=== PATIENT | male | born 1935 | race Caucasian/White ===

== ENCOUNTER → 2016-10-16 | Outpatient (CLI) | payer OTHER ==
--- NOTE | 2016-10-16 14:32 | EKG ---
[address] [address] Measurements Intervals [place] Rate: 75 P: [place]: 0 QRS: 46 QRSD: 86 T: 65 QT: 376 QTc: 405 Interpretive Statements ATRIAL FIBRILLATION MINIMAL ST DEPRESSION, POSSIBLE DIGITALIS EFFECT ABNORMAL RHYTHM ECG No previous ECG available for comparison Electronically Signed On 10-16-16 15:54:19 MST by Ortiz Haney [id number]
== END ==
LOC: MOB EKG 14:20
PROVIDERS: ATTEND Specialist
DX: I48.92 Unspecified atrial flutter (principal); I48.91 Unspecified atrial fibrillation
CPT/HCPCS: 93005; 93010

== ENCOUNTER → 2016-12-31 | Outpatient (CLI) | payer OTHER | LOC: MMPC 09:00 | PROVIDERS: ATTEND Internal Medicine | DX: Z79.01 Long term (current) use of anticoagulants (principal); Z51.81 Encounter for therapeutic drug level monitoring; I48.91 Unspecified atrial fibrillation | CPT/HCPCS: 85610 ==

== ENCOUNTER → 2017-01-14 | Outpatient (CLI) | payer OTHER | LOC: MMPC 11:11 | PROVIDERS: ATTEND Internal Medicine | DX: I48.92 Unspecified atrial flutter (principal); E78.5 Hyperlipidemia, unspecified | CPT/HCPCS: 99213; G0463 ==

== ENCOUNTER → 2017-02-20 | Outpatient (CLI) | payer OTHER | LOC: MMPC 09:00 | PROVIDERS: ATTEND Internal Medicine | DX: Z79.01 Long term (current) use of anticoagulants (principal); Z51.81 Encounter for therapeutic drug level monitoring; I48.91 Unspecified atrial fibrillation | CPT/HCPCS: 85610 ==

== ENCOUNTER → 2017-03-13 | Outpatient (CLI) | payer OTHER ==
--- NOTE | 2017-03-14 00:13 | DI ---
XR ANKLE 2VW,03/13/2017 4:14 PM: Clinical History: Acute left ankle pain. Previous Exam: Contralateral ankle performed July 02, 2016 Findings: AP and lateral views of the left ankle are obtained, and demonstrate anatomic alignment without fract ures. There is mild soft tissue swelling. Impression: No fractures.
== END ==
LOC: RAD 16:17
PROVIDERS: ATTEND Internal Medicine
DX: M25.572 Pain in left ankle and joints of left foot (principal); R60.0 Localized edema; M10.9 Gout, unspecified; M15.9 Polyosteoarthritis, unspecified
CPT/HCPCS: 36415; 73600; 84550; 99214; G0463

== ENCOUNTER → 2017-03-14 | Outpatient (CLI) | payer OTHER | LOC: MMPC 10:00 | PROVIDERS: ATTEND Podiatrist Foot & Ankle Surgery | DX: M72.2 Plantar fascial fibromatosis (principal); M79.672 Pain in left foot | CPT/HCPCS: 20550 ×2; 99202; G0463; J0702 ==

== ENCOUNTER → 2017-03-25 | Outpatient (CLI) | payer OTHER | LOC: MMPC 09:00 | PROVIDERS: ATTEND Internal Medicine | DX: Z79.01 Long term (current) use of anticoagulants (principal); Z51.81 Encounter for therapeutic drug level monitoring; I48.91 Unspecified atrial fibrillation | CPT/HCPCS: 85610 ==

== ENCOUNTER → 2017-04-15 | Outpatient (CLI) | payer OTHER | LOC: MMPC 09:00 | PROVIDERS: ATTEND Internal Medicine | DX: Z79.01 Long term (current) use of anticoagulants (principal); Z51.81 Encounter for therapeutic drug level monitoring; I48.91 Unspecified atrial fibrillation | CPT/HCPCS: 85610 ==

== ENCOUNTER → 2017-04-16 | Outpatient (CLI) | payer OTHER ==
--- NOTE | 2017-04-16 08:57 | EKG ---
[address] [address] Measurements Intervals [place] Rate: 73 P: [place]: 0 QRS: 28 QRSD: 83 T: 42 QT: 366 QTc: 392 Interpretive Statements ATRIAL FIBRILLATION ABNORMAL RHYTHM ECG Compared to ECG 10/16/2016 14:34:27 ST (T wave) deviation no longer present Electronically Signed On 04-16-17 11:17:15 MDT by Cecil Ocampo MD [id number]
== END ==
LOC: EKG 08:37
PROVIDERS: ATTEND Specialist
DX: I48.2 Chronic atrial fibrillation (principal); I25.10 Atherosclerotic heart disease of native coronary artery without angina pectoris; E78.5 Hyperlipidemia, unspecified; Z95.5 Presence of coronary angioplasty implant and graft; Z79.01 Long term (current) use of anticoagulants
CPT/HCPCS: 93005; 93010; 99213; G0463

== ENCOUNTER → 2017-04-17 | Outpatient (CLI) | payer OTHER ==
[2017-04-17 09:54] LABS: BUN/CREATININE RATIO 17.27 (6-20); CALCIUM 9.1 mg/dL (8.7-10.7); CHOL/HDL RATIO 3.9 RATIO (0-4.0); LDL CHOLESTEROL,CALCULATED 75.4 mg/dL; MAGNESIUM 1.8 mg/dL (1.6-2.4)
== END ==
LOC: LAB 08:26
PROVIDERS: ATTEND Specialist
DX: E78.5 Hyperlipidemia, unspecified (principal); I48.0 Paroxysmal atrial fibrillation; I10 Essential (primary) hypertension
CPT/HCPCS: 36415; 80048; 80061; 80162; 83735

== ENCOUNTER → 2017-04-25 | Outpatient (CLI) | payer OTHER | LOC: MMPC 10:00 | PROVIDERS: ATTEND Podiatrist Foot & Ankle Surgery | DX: M79.672 Pain in left foot (principal); M72.2 Plantar fascial fibromatosis; Z79.01 Long term (current) use of anticoagulants | CPT/HCPCS: 20550 ×2; G0463; J0702 ==

== ENCOUNTER 2019-05-26 11:15 | Observation (INO) ==
[2019-05-26 13:16] LABS: BASOPHILS # (AUTO) 0.03 10*3/UL; BASOPHILS % (AUTO) 0.3 % (0-1); EOSINOPHILS # (AUTO) 0.17 10*3/UL; EOSINOPHILS % (AUTO) 1.7 % (0-8); Hematocrit [HCT] 46.4 % (42.0-52.0); Hemoglobin [HGB] 15.2 g/dL (14.0-18.0); LYMPHOCYTES # (AUTO) 0.67 10*3/uL; MEAN CORPUSCULAR HGB CONC 32.8 g/dL (33-37); MEAN CORPUSCULAR VOLUME 98.3 FL (80-90); MEAN PLATELET VOLUME 9.7 FL (7.4-12.2); MONOCYTES # (AUTO) 1.38 10*3/UL (0.3-0.8); MONOCYTES % (AUTO) 14.2 % (5-15); NEUTROPHILS # (AUTO) 7.45 10*3/UL; NEUTROPHILS % (AUTO) 76.5 % (50-80); RED BLOOD COUNT 4.72 10^6/uL (4.70-6.10)
[2019-05-26 13:17] LABS: PLATELET MORPHOLOGY COMMENT NORMAL MORPHOLOGY (NORM); RBC MORPHOLOGY COMMENT NORMAL MORPHOLOGY (NORM); WBC MORPHOLOGY COMMENT NORMAL MORPHOLOGY (NORM)
--- NOTE | 2019-05-26 14:05 | DI ---
MRI CERVICAL SPINE SCAN, 05/26/2019 11:55 AM: Clinical History: Left radiculopathy and neck pain. Previous Exam: None. Technique: Sagittal T1and T2 weighted. Axial T2 PLUS and FE 3D DUAL. Coronal T1 scans through the upp er cervical spine. Cervical Cord: Normal cervical cord. Cerebellar Tonsils: Normal position. Vertebral Bodies: The vertebral bodies are of normal height and size. Disc Space Height: Severe disc space narrowing at C5-6 and C6-7 with moderately severe narrowing at C 2-3, C3-4, and C7-T1. Anterior and posterior bony proliferative changes are present at C3-4, C5-6 and C6-7. Disc Levels: C2-3: Normal. C3-4: Spinal canal stenosis in AP diameter secondary to a bulging disc and bony proliferative ch roselyn. Bilateral neural foraminal stenosis. C4-5: Midline focal disc bulge with the AP diameter of the canal at the lowest limits of normal. There is no neural foraminal stenosis. C5-6: Right-sided disc herniation displacing the cord posteriorly on the right side with the AP diameter of the canal at the lower limits of normal. Severe right neural foraminal stenosis and moder ately severe left neural foraminal stenosis. C6-7: Right-sided disc herniation displacing the cord posteriorly on the right side with the AP diameter of the canal at the lowest limits of normal. Severe right neural foraminal stenosis with no left neural foraminal stenosis. C7-T1: Normal. Lower Levels: Normal disc spaces from T1-2 through T4-5. Readin. Spinal canal stenosis at C3-4 secondary to a bulging disc and bony proliferative change. Bilatera l neural foraminal stenosis. 2. C5-6 and C6-7 have right-sided disc herniations with severe right neural foraminal stenosis. At C 5-6, the AP diameter of the canal is at the lower limits of normal and there is moderately severe lef t neural foraminal stenosis. At C6-7, AP diameter of the canal is at the lowest limits of normal and there is no left neural foraminal stenosis. 3. C4-5 has a bulging disc with an AP diameter at the lowest limits of normal and no neural foramina l stenosis.
--- NOTE | 2019-05-26 14:07 | DI ---
LEFT SHOULDER EXAM, 05/26/2019 12:40 PM: Clinical History: Left shoulder pain. Comparison Study: None at this facility. Views: 4 views. Soft Tissues: No soft tissue swelling. Effusion: No joint effusion present. Joints: Mild arthrosis of the AC joint. Remodeling of the glenoid fossa but with a preserved joint sp job. Bones: No fracture or dislocation. Lung: The visualized portions of the right apex and lung are normal. Reading: There is remodeling of the glenohumeral fossa indicating mild arthritic change.
[2019-05-26] MEDS ORDERED: MORPHINE SULFATE 4 MG/1 ML IVP ONE (14:38)
[2019-05-26] MEDS ORDERED: Sodium Chloride 0.9% 1,000 ML PRIMARY IV ONE (14:38)
--- NOTE | 2019-05-26 14:57 | DI ---
CT PELVIS SCAN WITHOUT IV CONTRAST, 05/26/2019 12:30 PM : Clinical History: Left hip pain. Previous Exam: None at this facility. Comparison is made with an AP pelvis and left hip exam from 05/01. IV Contrast: None. Oral Contrast: No oral contrast ordered. Rectal Contrast: No rectal contrast ordered. Masses: No mass present. Ascites: None. Free Air: None. Lymph Nodes: No adenopathy. Appendix: Not imaged on this study. Small Bowel: Limited loops of small bowel are normal. Colon: Limited visualized portions of the colon are normal. Bladder: Normal. Prostate: Prostatic hypertrophy. Hernias: There is a small umbilical hernia through which only mesenteric fat has herniated. Bony Pelvis: Intact. Osteoporotic. Left Hip: Asphericity of the femoral head with a dysplastic "bump" acetabular over coverage with bony proliferation along the inferior aspect of the acetabulum. No joint effusion. Narrowing of the super ior, medial, and posterior joint space. READIN. Negative CT scan of the pelvis without IV contrast. 2. Femoroacetabular impingement of the left hip with joint space narrowing medially, superiorly, and posteriorly.
--- NOTE | 2019-05-26 15:56 | PDOC ---
HPI - History of Present Illness Date of Service: 05/26/19 Time of Service: 18:15 Chief Complaint: Pain back of the neck and the top of the left shoulder, pain left groin area and down to the knee off 4 days duration History of Present Illness: This is an 84 years old male with medical history significant for history of hypertension, history of A. fib, on anticoagulation with warfarin, history of coronary artery disease with previous stent who was brought to the ER because of neck pain and left shoulder pain and left groin area pain that radiated down to the knee of 4 days duration. He said he had pain on and off in these areas but less sever. Pain got severe to the extent that he had to use walker yesterday and also had to use it today but it took a long time to go to the bathroom and then he stayed in his chair. His said she came in he was sitting in his chair was unable to get up. because of that they called the medics and brought him into the ER he had multiple tests done in the ER including an MRI of the neck, shoulder x-ray and the hip x-ray that showed osteoarthritis no evidence of fracture. Patient did say that the last week he was working with 100 pound bag of feed that he had to fill 5 gallon buckets and did that about 4 times. He went to the urgent care clinic had an x-ray was sent home and follow-up with primary. Currently rates his pain as 7-8 out of 10. No other symptoms like nausea, vomiting and shortness of breath and no fever. Past Medical History Medical History: 1. History of paroxysmal A. fib. 2. History of hyperlipidemia. 3. History of hypertension. 4. History of osteoarthritis. 5. History of coronary artery disease with previous stent Surgical History: 1. History of appendectomy. 2. History of cholecystectomy. 3. History of shoulder surgery Family History: Reviewed an Not Pertinent Past Social History: Does not smoke, does not drink no drugs. Tobacco Use: Never Smoker In the Past 12 Months, Have Used or Abuse Any of the Following Substance: None Medication / Allergies Home Medications: Home Medications Medication Instructions Recorded Confirmed aspirin 81 mg tablet,delayed 81 mg PO QDAY tab 07/01/17 05/26/19 release digoxin 125 mcg tablet 125 mcg PO QDAY #90 tab 12/31/18 05/26/19 lisinopril 10 mg tablet 10 mg PO QDAY #90 tab 12/31/18 05/26/19 metoprolol succinate ER 100 mg 100 mg PO BID #180 tab 12/31/18 05/26/19 tablet,extended release 24 hr rosuvastatin 20 mg tablet 20 mg PO QDAY #90 tab 12/31/18 05/26/19 warfarin 5 mg tablet 5 mg PO QDAY #90 tab 12/31/18 05/26/19 Allergies/Adverse Reactions: Allergies Allergy/AdvReac Type Severity Reaction Status Date / Time No Known Allergies Allergy Verified 05/26/19 12:42 Review of Systems - Review of Systems All Systems: Reviewed & No Additional Complaints Except as Stated Exam - Vitals Vital Signs: Vital Signs Temperature 97 F Temperature Source Temporal Artery Scan Pulse Rate [Pulse Oximeter] 85 Respiratory Rate 16 Blood Pressure [Left Arm] 153/83 Pulse Ox 93 Oxygen Delivery Method Room Air Height 5 ft 7 in Weight 180 lb - General General Appearance: No Acute Distress, Cooperative - Head Head Exam: Normal Inspection - Eye Eye Exam: POSITIVE: Normal Appearance - ENT ENT Exam: POSITIVE: Normal Exam - Neck Neck Exam: Normal Inspection - Respiratory Respiratory Exam: POSITIVE: Clear to Auscultation - Bilaterally - Cardiovascular Cardiovascular Exam: POSITIVE: Irregular Rhythm - GI/Abdominal GI/Abdominal Exam: POSITIVE: Normal Bowel Sounds, Non Tender, Non Distended, Soft, No Organomegaly - Rectal Rectal Exam: POSITIVE: Deferred - External Exam: POSITIVE: Deferred - Extremities Additional Extremities Exam Details: Left leg is somewhat externally rotated. Movement is limited because of pain. he Is barely able to lift his leg up while in bed. Also limited flexion- extension of the knee because of pain. Passive movement also elicited pain. - Neurological Neurological Exam: POSITIVE: Alert, Oriented x 3, CN II-XII Intact, No Facial Droop, Speech Intact / Clear - Psychiatric Psychiatric Exam: POSITIVE: Normal Affect - Integumentary Integumentary Exam: POSITIVE: Normal Color Results - Labs CBC and BMP: 05/26/19 13:10 05/26/19 13:10 - Imaging Status: Report Reviewed by Me (CT pelvis 1. Negative CT scan of the pelvis without IV contrast. 2. Femoroacetabular impingement of the left hip with joint space narrowing medially, superiorly, and posteriorly. Shoulder X ray There is remodeling of the glenohumeral fossa indicating mild arthritic change. MRI neck 1. Spinal canal stenosis at C3-4 secondary to a bulging disc and bony proliferative change. Bilateral neural foraminal stenosis. 2. C5-6 and C6-7 have right-sided disc herniations with severe right neural foraminal stenosis. At C5-6, the AP diameter of the canal is at the lower limits of normal and there is moderately severe left neural foraminal stenosis. At C6-7, AP diameter of the canal is at the lowest limits of normal and there is no left neural foraminal stenosis. 3. C4-5 has a bulging disc with an AP diameter at the lowest limits of normal and no neural foraminal stenosis.) Assessment and Plan - Patient Problems (1) Left hip pain Current Visit: Yes Status: Acute Comment: There is evidence of arthritis with no evidence of fracture. if He continued to have pain , will an MRI of his hip and will consult ortho. We'll check ESR and CRP. Will put him on pain medication and will give a dosage of Celebrex Code(s): M25.552 - Pain in left hip (2) Essential hypertension Current Visit: No Status: Chronic Onset Date: 03/28/12 Comment: Same medication Code(s): I10 - Essential (primary) hypertension (3) Paroxysmal atrial fibrillation Current Visit: No Status: Chronic Comment: Continue current medication including metoprolol and warfarin. (4) Hyperlipidemia Current Visit: No Status: Chronic Onset Date: 03/28/12 Comment: Same medications Code(s): E78.5 - Hyperlipidemia, unspecified
[2019-05-26] MEDS ORDERED: LIDOCAINE W/ SODIUM BICARB 0.5 ML SYR SUBD PRN (17:45)
[2019-05-26] MEDS ORDERED: CALCIUM CARBONATE 500 MG (TUMS) CHEWABLE TABLET PO PRN (17:45)
[2019-05-26] MEDS ORDERED: ONDANSETRON 4 MG/2 ML VIAL IVP PRN (17:45)
[2019-05-26] MEDS ORDERED: DOCUSATE 100 MG CAPSULE PO PRN (17:45)
[2019-05-26] MEDS ORDERED: ACETAMINOPHEN 325 MG TABLET PO PRN (17:45)
[2019-05-26] MEDS ORDERED: MORPHINE SULFATE 2 MG/1 ML IVP PRN (17:51)
[2019-05-26] MEDS: HYDROcodone-APAP 5 MG -325 MG TABLET PO PRN (18:43)
[2019-05-26] MEDS ORDERED: CELECOXIB 200 MG CAPSULE PO ONE (18:44)
[2019-05-26] MEDS: Rosuvastatin Tab 20 MG TAB PO SCH (20:39)
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
[2019-05-26] MEDS: Warfarin Tab 2.5 MG TAB PO SCH (20:47)
[2019-05-26] MEDS: METOPROLOL SUCCINATE 100 MG SR 24H TABLET PO SCH (20:47)
[2019-05-27] MEDS: HYDROcodone-APAP 5 MG -325 MG TABLET PO PRN ×6 (00:04→23:45)
[2019-05-27] MEDS: PANTOPRAZOLE 40 MG TABLET PO SCH (07:20)
--- NOTE | 2019-05-27 07:59 | PDOC(PROG) ---
Date of Service: 05/27/19 Time of Service: 07:30 Interval History: Subjective Maybe a little bit better today compared to yesterday. However he said he did not get up since he's been here. He Said the pain medication is helping. No nausea. Objective : Data - Labs CBC and BMP: 05/26/19 13:10 05/26/19 13:10 Objective : Exam - General General Appearance: No Acute Distress, Cooperative, Obese - Head Head Exam: Normal Inspection - Eye Eye Exam: Normal Appearance - ENT ENT Exam: Normal Exam - Neck Neck Exam: Normal Inspection - Respiratory Respiratory Exam: Clear to Auscultation - Bilaterally - Cardiovascular Cardiovascular Exam: RRR - GI/Abdominal GI/Abdominal Exam: Normal Bowel Sounds, Non Tender, Non Distended, Soft, No Organomegaly - Rectal Rectal Exam: Deferred - External Exam: Deferred - Extremities Additional Extremities Exam Details: Slight external rotation of the left leg. He is able to do more like lifting the leg up better than yesterday but still very limited movement because of the pain. Also left shoulder abduction is better than yesterday but is still limited by pain. - Neurological Neurological Exam: Alert, Oriented x 3, CN II-XII Intact, No Facial Droop, Speech Intact / Clear - Psychiatric Psychiatric Exam: Normal Affect - Integumentary Integumentary Exam: Normal Color Assessment and Plan - Patient Problems (1) Left hip pain Current Visit: Yes Status: Acute Comment: I think will order an MRI of his hip. I did speak with Dr. Chairez will see patient after the MRI. Likely also consult PT and OT after that. Code(s): M25.552 - Pain in left hip (2) Essential hypertension Current Visit: No Status: Chronic Onset Date: 03/28/12 Comment: Same medication Code(s): I10 - Essential (primary) hypertension (3) Paroxysmal atrial fibrillation Current Visit: No Status: Chronic Comment: Continue same medication and continue anticoagulation. I think though we'll hold the Coumadin tonight and recheck his INR tomorrow. (4) Hyperlipidemia Current Visit: No Status: Chronic Onset Date: 03/28/12 Comment: Same med Code(s): E78.5 - Hyperlipidemia, unspecified
[2019-05-27] MEDS: ASPIRIN EC 81 MG TABLET PO SCH (09:05)
[2019-05-27] MEDS: LISINOPRIL 10 MG TABLET PO SCH (09:06)
[2019-05-27] MEDS: DIGOXIN 125 MCG TABLET PO SCH (09:06)
[2019-05-27] MEDS: METOPROLOL SUCCINATE 100 MG SR 24H TABLET PO SCH ×2 (09:06→20:28)
--- NOTE | 2019-05-27 11:36 | DI ---
MRI LEFT HIP, 05/27/2019 8:55 AM: Clinical History: Left hip pain. Unable to walk. Prior Study: None at this facility. Comparison Exam: None. Technique: Coronal PD and fat saturated PD with anterior and posterior oblique coronal fat saturated PD; sagittal PD and fat saturated PD; and axial fat saturated T2 weighted and oblique axial PD. Femoral Head/Neck Junction: Aspherical femoral head/neck junction. No fibrocystic change. Iliofemoral Ligament: Intact without thickening. Ligamentum Teres Tendon: Intact. Acetabular Roof: Non-dysplastic. There is acetabular overcoverage. No retroversion. Acetabular Articular Cartilage: With thin but without cartilage degeneration. Chondrocalcinosis. Femoral Head Articular Cartilage: Thin but without cartilage degeneration. Joint Effusion: Moderately large effusion. Acetabular Labrum: Marked degeneration with a small labral tear labral tear posteriorly in zone 4. La bral tear of the anterosuperior labrum in zone 2. Gluteus Medius and Minimus Tendons: Intact. No tendinosis. Muscle strain in the gluteus minimus muscl e near the myotendinous junction. Greater Trochanteric Bursa: No increased fluid. Rectus Femoris Tendon: Intact direct and indirect head. Iliopsoas Tendon: Intact. Muscle strain in the iliopsoas muscle. Rectus Femoris Tendon: Intact. Alpha Angle: 59 degrees. Readin. Moderately large joint effusion. No fractures identified. 2. Muscle strains involving the iliopsoas muscle and the gluteus minimus muscle with possible edema of the subcutaneous fat over the lateral aspect of the hip. 3. Femoroacetabular impingement with a small labral tear posteriorly in zone 4 and a tear in the ant erosuperior labrum in zone 2. Chondrocalcinosis.
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
[2019-05-27] MEDS: Rosuvastatin Tab 20 MG TAB PO SCH (20:28)
[2019-05-28] MEDS: HYDROcodone-APAP 5 MG -325 MG TABLET PO PRN ×3 (04:19→19:57)
[2019-05-28] MEDS ORDERED: BUPivacaine Inj 0.5% PF (5mg/ml) 10ml vial ONE (07:53)
[2019-05-28] MEDS ORDERED: LIDOCAINE MPF 2% - 5 ML (20 MG/1 ML) ONE (07:53)
[2019-05-28] MEDS ORDERED: BETAMET ACET/BETAMET NA PH 6 MG/1 ML - 5 ML ONE (07:53)
[2019-05-28] MEDS ORDERED: LIDOCAINE W/ SODIUM BICARB 0.5 ML SYR ONE ×2 (07:54→08:55)
[2019-05-28] MEDS: PANTOPRAZOLE 40 MG TABLET PO SCH (07:56)
[2019-05-28] MEDS: ASPIRIN EC 81 MG TABLET PO SCH (08:00)
[2019-05-28] MEDS: DIGOXIN 125 MCG TABLET PO SCH (08:00)
[2019-05-28] MEDS: METOPROLOL SUCCINATE 100 MG SR 24H TABLET PO SCH ×2 (08:00→19:59)
[2019-05-28] MEDS: LISINOPRIL 10 MG TABLET PO SCH (08:00)
--- NOTE | 2019-05-28 09:29 | PDOC(PROG) ---
Date of Service: 05/28/19 Time of Service: 09:30 Interval History: Subjective Patient had the hip and shoulder injected earlier. Already he said feels better. Still have pain but it's better than earlier. No other symptoms. Objective : Data - Labs CBC and BMP: 05/26/19 13:10 05/26/19 13:10 Objective : Exam - General General Appearance: No Acute Distress, Cooperative - Head Head Exam: Normal Inspection - Eye Eye Exam: Normal Appearance - ENT ENT Exam: Normal Exam - Neck Neck Exam: Normal Inspection - Respiratory Respiratory Exam: Clear to Auscultation - Bilaterally - Cardiovascular Cardiovascular Exam: Irregular Rhythm - GI/Abdominal GI/Abdominal Exam: Normal Bowel Sounds, Non Tender, Non Distended, Soft, No Organomegaly - Rectal Rectal Exam: Deferred - External Exam: Deferred - Extremities Extremities Exam: Normal Inspection - Back Back Exam: Normal Inspection - Neurological Neurological Exam: Alert, Oriented x 3, CN II-XII Intact, No Facial Droop Additional Neurological Exam Details: Limitation of shoulder abduction and also hip flexion. But he said it's better than 4. - Psychiatric Psychiatric Exam: Normal Affect Assessment and Plan - Patient Problems (1) Left hip pain Current Visit: Yes Status: Acute Comment: Status post hip injection, I think we'll ask PT and OT to work with him. We'll check also the fluid later on. Code(s): M25.552 - Pain in left hip (2) Essential hypertension Current Visit: No Status: Chronic Onset Date: 03/28/12 Comment: Same medication Code(s): I10 - Essential (primary) hypertension (3) Paroxysmal atrial fibrillation Current Visit: No Status: Chronic Comment: Since he needed to have the procedure done we held his Coumadin and we actually gave him vitamin K to reverse the effect of warfarin. I think now we can restart the warfarin. We'll recheck his INR tomorrow. (4) Hyperlipidemia Current Visit: No Status: Chronic Onset Date: 03/28/12 Comment: Same med Code(s): E78.5 - Hyperlipidemia, unspecified
[2019-05-28 09:37] LABS: WBC, BODY FLUID 10.05 10*3/uL
--- NOTE | 2019-05-28 12:53 | PTI REPORT ---
Thank you for the referral of Pepe Prabhakar. He was seen on 05/28/19 for an inpatient evaluation secondary to left shoulder and left hip pain. SUBJECTIVE: The patient is an 84-year-old male. At the time of the evaluation, occupational therapy was present as well as the patient's . Chart review and the patient's confirm that he was brought into the emergency room via ambulance on Saturday due to a drastic increase in pain in his left hip. The patient states he wasn't hardly able to move his leg let alone place weight on it. He states he has underwent several different types of imaging and currently they are doing blood work to see if it is gout. He states he hasn't hardly been out of bed for the past three days and is wanting to go home as soon as he can be mobile. PAST MEDICAL HISTORY: Past medical history can be found in the patient's medical record. OBJECTIVE FINDINGS: Pain: The patient reports a pain level in his left hip at 7 to 8/10 on the verbal analog scale (0=no pain, 10=worst pain) and a 9/10 with movement. Bed mobility: The patient required max assist x1 for bed mobility from supine to edge of bed. He was able to sit edge of bed unsupported for greater than 5 minutes without difficulty. Transfers: The patient is able to perform sit to stand transfers with tactile cues and verbal encouragement for safety awareness and proper hand placement. He was able to perform standing activities for greater than 15-20 minutes with walker, gait belt, and contact guard assistance with anything between toe touch to weight-bearing as tolerated on the left lower extremity. The patient required only verbal cues for a standing to sit transfer for proper leg placement and hand placement on the chair. Ambulation: Initially the patient required mod to max assist for the left lower extremity initiation for any type of ambulatory activities; however, this decreased to just stand by assist. He was unable to perform any actual ambulatory activities due to the pain in his left groin and hip but was able to turn in a [place]. Strength/Range of motion: Strength and range of motion were not formally assessed due to the patient's currently pain level. ASSESSMENT: Problem List: Uncontrolled pain Inability to perform bed mobility and transfers independently Inability to ambulate or tolerate weight-bearing due to pain Physical Therapy Goals: To be met by discharge from inpatient: Patient will be able to perform all bed mobility and transfers with at least stand by assist. Patient will be able to ambulate 100-300 feet for community and household ambulation for safety with returning to home. Patient will be able to ascend and descend at least three steps. TREATMENT PLAN: Patient will be seen B.I.D during the week and one time per day over the weekend as an inpatient to address the above goals and objectives. INITIAL TREATMENT: Treatment today consisted of the initial evaluation followed by having the patient perform bed mobility from supine to edge of bed with max assist x1 as well as issuing the patient a walker. The patient performed functional activities unsupported seated at the edge of the bed including attempted heel slides; however, the patient was unable to do this due to pain recreation. The patient performed sit to stand transfers with moderate assist x1 followed by standing activities for greater than 20 minutes. Following completion of this, he was transferred to his chair with call light within reach. GRUPO
--- NOTE | 2019-05-28 17:07 | ORTHO.OP ---
- - -: See Dictated Operative Report Procedure Codes - Miscellaneous Procedures Primary Miscellaneous Procedure Codes: Other CPT Code(s) (CPT Codes 56574 and 78481 for left hip, 66958 for left shoulder injection)
--- NOTE | 2019-05-28 17:10 | ORTHO.PROG ---
Last Taken Vital Signs: Vital Signs - Last Taken Temperature 98.3 F 05/28/19 13:00 Pulse Rate 90 05/28/19 15:00 Respiratory Rate 12 05/28/19 13:00 Blood Pressure 116/62 05/28/19 13:00 Pulse Ox 91 05/28/19 15:00 Subjective: Patient notes left shoulder is doing great no pain left hip markedly better but still was some symptoms of discomfort in the groin region. Objective: Examination shows that the patient's hip motion is definite better he can flex to 70 and internally rotate to neutral externally rotated about 30. There is no redness no erythema. Sores her shoulder he has about 120 forward flexion and external rotation of the arm by the side 3035 strength is I would say 4+ over 5 internal/external rotation strength but weakness with supraspinatus isolation. No tenderness to palpation. Gram stain showed no organisms occasional white blood cells, Crystal analysis showed no crystals, Laboratory Results 05/27/19 05/28/19 05/28/19 22:01 04:24 04:24 PT 24.0 H 18.1 H INR 2.07 1.57 Fluid WBC Fluid RBC Fluid Polynuclear WBCs Fluid Mononuclear WBCs Synovial Crystals Digoxin 1.8 05/28/19 05/28/19 09:09 09:09 PT INR Fluid WBC 10.05 Fluid RBC 0.002 Fluid Polynuclear WBCs 83.5 Fluid Mononuclear WBCs 16.5 Synovial Crystals None seen Digoxin Vital Signs (24 hrs) 05/27/19 19:00 05/27/19 19:34 05/27/19 21:00 Temperature 98.4 F Pulse Rate Pulse Rate [Left Radial] Pulse Rate [Pulse Oximeter] 90 Pulse Rate [pulse ox] Respiratory Rate 15 Blood Pressure [Left Arm] 133/70 Pulse Ox 91 Pulse Ox [pulse ox] 92 92 05/27/19 23:00 05/27/19 23:51 05/28/19 01:00 Temperature 98.3 F Pulse Rate Pulse Rate [Left Radial] Pulse Rate [Pulse Oximeter] 90 Pulse Rate [pulse ox] Respiratory Rate 20 Blood Pressure [Left Arm] 142/73 Pulse Ox 90 Pulse Ox [pulse ox] 91 91 05/28/19 03:00 05/28/19 04:27 05/28/19 04:37 Temperature 98.4 F Pulse Rate Pulse Rate [Left Radial] Pulse Rate [Pulse Oximeter] 84 Pulse Rate [pulse ox] Respiratory Rate 20 Blood Pressure [Left Arm] 144/82 Pulse Ox 91 93 Pulse Ox [pulse ox] 92 05/28/19 05:00 05/28/19 07:00 05/28/19 07:30 Temperature 98.2 F Pulse Rate Pulse Rate [Left Radial] 66 Pulse Rate [Pulse Oximeter] 81 81 Pulse Rate [pulse ox] Respiratory Rate 14 14 Blood Pressure [Left Arm] 140/68 Pulse Ox 93 Pulse Ox [pulse ox] 92 05/28/19 08:00 05/28/19 11:00 05/28/19 13:00 Temperature 98.3 F Pulse Rate 81 Pulse Rate [Left Radial] Pulse Rate [Pulse Oximeter] 81 Pulse Rate [pulse ox] 89 91 Respiratory Rate 12 Blood Pressure [Left Arm] 116/62 Pulse Ox 91 Pulse Ox [pulse ox] 91 91 05/28/19 15:00 Temperature Pulse Rate Pulse Rate [Left Radial] Pulse Rate [Pulse Oximeter] Pulse Rate [pulse ox] 90 Respiratory Rate Blood Pressure [Left Arm] Pulse Ox Pulse Ox [pulse ox] 91 Assessment: Left hip inflammatory arthritis and left shoulder chronic rotator cuff arthropathy likely with degree of inflammatory arthritis. Plan: Follow cultures to make shows no evidence of infection in the left hip. Hopefully he'll get better relief as time passes with the hip injection. Patient restarted on his regular medication for anticoagulation Coumadin. Mobilize with physical therapy and occupational therapy.
[2019-05-28] MEDS: Warfarin Tab 2.5 MG TAB PO SCH (19:59)
[2019-05-28] MEDS: Rosuvastatin Tab 20 MG TAB PO SCH (19:59)
[2019-05-29] MEDS: HYDROcodone-APAP 5 MG -325 MG TABLET PO PRN ×4 (02:25→20:52)
--- NOTE | 2019-05-29 08:44 | ORTHO.PROG ---
Last Taken Vital Signs: Vital Signs - Last Taken Temperature 98.4 F 05/29/19 07:37 Pulse Rate 87 05/29/19 07:44 Respiratory Rate 17 05/29/19 07:37 Blood Pressure 131/59 05/29/19 07:37 Pulse Ox 94 05/29/19 07:44 Subjective: Patient doing better this morning is no left shoulder pain after the injection his left hip is better but still has a little discomfort and keeps continuing to improve. Objective: Hip motion about 80 of flexion and internal/external rotation gently rolling doesn't seem to cause marked pain but does cause a little achiness in the hip region. Neurovascularly intact good pulses brisk refill shoulder motion is actually unchanged with no pain with motion Laboratory Results 05/28/19 05/28/19 05/29/19 09:09 09:09 07:14 PT 14.0 H INR 1.21 Fluid WBC 10.05 Fluid RBC 0.002 Fluid Polynuclear WBCs 83.5 Fluid Mononuclear WBCs 16.5 Synovial Crystals None seen Microbiology 05/28/19 09:09 Gram Stain - Final Hip - Left Aerobic Culture - Pending Gram stain with no evidence of organisms Assessment: Left hip aspiration with effusion likely secondary to arthritic issues, we'll continue to follow cultures or evidence of infection Last shoulder rotator cuff arthropathy, doing well after injection Plan: Patient will work with therapy today mobilization with a walker eventually I think he can wean to a cane on using the right hand for the left hip. We'll see how he progresses is removed forward in time and have him able to go home if he clears therapy I don't think we have to keep him in the hospital while awaiting the culture results though I did discuss with the family that if these do come back positive we may need to have him come back in for IV antibiotics and follow this closely and potentially either aspirate again or consider an open washout
[2019-05-29] MEDS: PANTOPRAZOLE 40 MG TABLET PO SCH (08:56)
[2019-05-29] MEDS: METOPROLOL SUCCINATE 100 MG SR 24H TABLET PO SCH ×2 (08:56→20:53)
[2019-05-29] MEDS: ASPIRIN EC 81 MG TABLET PO SCH (08:56)
[2019-05-29] MEDS: LISINOPRIL 10 MG TABLET PO SCH (08:56)
[2019-05-29] MEDS: DIGOXIN 125 MCG TABLET PO SCH (08:57)
--- NOTE | 2019-05-29 11:19 | PT.PROG ---
Progress Note Progress Note: S. pt was in intense pain but reported it being better then yesterday. He siad as long as he can stand and walk forward he does ok. Turning and sidestepping and hip rotation caused horrible pain. O. pt was helped to his w/c via walker and a few steps to his chair and transported to physical therapy. He received heat x 20 min and did mat activities including Quad sets, Heel slides, clams, sit to stands we tried to do 2 stairs. He was placed in his chair and taken back to his room and transferred. A. pt is struggling with pain and ambulation exacerbates it. He was unable to do the stairs in a safe manner and his was concerned over her being able to assist him in his current state. He asked if he could get a shower as he has not had one since arrival and OT therapy has agreed to do that this afternoon to see how he can or can't functional manage ADL's. P. Cont POC. pt was unable to safely perform stairs training. 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
--- NOTE | 2019-05-29 11:26 | OT.PROG ---
Progress Note Progress Note: S: pt reported that he didn't really want a high rise toilet. He reported that he hasn't really walked at all. O: pt was seen in his room and was upright in his chair. He completed Ue dressing with min A. He completed STS with min A and transferred to restroom. He completed transfer onto toilet with Mod Ind as it took him longer to complete with use of grab bar. He completed ambulation apprx 30 ft very slowly. He was transferred the rest of way down to therapy in w/c. He completed bed mobility Ind and was left on heat. A: pt is having difficulty ambulating properly and effectively as well as pain management. He will be assessed this afternoon with further ADL activities. P: continue per pOC.
--- NOTE | 2019-05-29 13:32 | PDOC(PROG) ---
Date of Service: 05/29/19 Time of Service: 10:00 Interval History: Subjective he feels better compared to when he came in. He is able to move his left shoulder better than before, the pain also seems to be improved. The left hip pain also improved. However he said he still somewhat weak. He is working with physical therapy now. Objective : Data - Labs CBC and BMP: 05/26/19 13:10 05/26/19 13:10 Objective : Exam - General General Appearance: No Acute Distress, Cooperative - Head Head Exam: Normal Inspection - Eye Eye Exam: Normal Appearance - ENT ENT Exam: Normal Exam - Neck Neck Exam: Normal Inspection - Respiratory Respiratory Exam: Clear to Auscultation - Bilaterally - Cardiovascular Cardiovascular Exam: Irregular Rhythm - GI/Abdominal GI/Abdominal Exam: Normal Bowel Sounds, Non Tender, Non Distended, Soft, No Organomegaly - Rectal Rectal Exam: Deferred - External Exam: Deferred - Extremities Extremities Exam: Normal Inspection - Back Back Exam: Normal Inspection Assessment and Plan - Patient Problems (1) Left hip pain Current Visit: Yes Status: Acute Comment: Status post the steroid injection to the hip and drainage of fluid. Continue current management continue PT and OT. I did speak with physical therapy still needs another day or 2. Will continue with physical therapy. Code(s): M25.552 - Pain in left hip (2) Essential hypertension Current Visit: No Status: Chronic Onset Date: 03/28/12 Comment: Same med Code(s): I10 - Essential (primary) hypertension (3) Paroxysmal atrial fibrillation Current Visit: No Status: Chronic Comment: Continue Coumadin will repeat his INR tomorrow his INR is down as we had to reverse the effect of the Coumadin. He'll receive another dosage today tonight at 5 mg of warfarin and repeat tomorrow. May need further adjustment to try to reach a therapeutic level again. I calculated his [id number] vasc score to be 4. So I think we can do without bridging anticoagulation. (4) Hyperlipidemia Current Visit: No Status: Chronic Onset Date: 03/28/12 Comment: Same meds Code(s): E78.5 - Hyperlipidemia, unspecified
--- NOTE | 2019-05-29 16:18 | PT.PROG ---
Progress Note Progress Note: S: Pt. states he is feeling pretty good today. O: Treatment consisted of functional activities: ambulated approx 25 feet with use of FWW, nu step x 13 minutes; therapeutic exercises: saq, slr, 4 way ankle, sit to stands x 10 followed by ambulating approx 75 feet with use of FWW. A: Pt. is improving with strength and function. He does present with pain which does limit his mobility. He would benefit from atleast another treatment session to address these areas of concern. P: Continue per POC to increase strength and activity tolerance. Amy Howard, [employer] ENGINEER
--- NOTE | 2019-05-29 16:24 | OT.PROG ---
Progress Note Progress Note: S: pt reports that he thinks maybe one more day would be good for him. He did state that pain in his groin area is quite severe when he tries to turn with walking with walker. O: pt was seen in his room and shower set up was completed for him. He completed transfer apprx 20 ft to shower room with standard walker. He completed doffing of UE/Le garments with mod Ind as it took him longer to complete. He completed showering with sBA for safety purposes only. He then donned UE/LE garments with MOd Ind and transferred back to his room. Pt refused to use A. E for donning of socks but eventually did christos socks INd on R and needed min A with L. He then then was transferred down to therapy for PT. A: Pt did progress slightly this afternoon, but is still experiencing quite a bit of pain through sit to stand transitions. He did ambulate at a greater distance, but very slow. He would benefit from another day, of therapy possibly two depending on his progress tomorrow. P: continue per POC.
[2019-05-29] MEDS: Warfarin Tab 2.5 MG TAB PO SCH (20:53)
[2019-05-29] MEDS: Rosuvastatin Tab 20 MG TAB PO SCH (20:54)
[2019-05-30] MEDS: HYDROcodone-APAP 5 MG -325 MG TABLET PO PRN (08:26)
[2019-05-30] MEDS: ASPIRIN EC 81 MG TABLET PO SCH (08:27)
[2019-05-30] MEDS: DIGOXIN 125 MCG TABLET PO SCH (08:27)
[2019-05-30] MEDS: PANTOPRAZOLE 40 MG TABLET PO SCH (08:27)
[2019-05-30] MEDS: LISINOPRIL 10 MG TABLET PO SCH (08:28)
[2019-05-30] MEDS: METOPROLOL SUCCINATE 100 MG SR 24H TABLET PO SCH ×2 (08:28→20:37)
--- NOTE | 2019-05-30 09:48 | ORTHO.PROG ---
Last Taken Vital Signs: Vital Signs - Last Taken Temperature 97.9 F 05/30/19 07:24 Pulse Rate 82 05/30/19 08:27 Respiratory Rate 20 05/30/19 07:24 Blood Pressure 138/61 05/30/19 07:24 Pulse Ox 92 05/30/19 07:24 Subjective: Patient notes left shoulder is doing great after the injection of the left hip he still is groin pain but markedly less from where was before is able to stand to do her exercises he's, trying to stairs today. Objective: Examination shows he has a hip flexion to about 100 internal rotation Rotation 30 he does have some groin pain associated with this. Shoulder limited range of motion secondary to chronic arthropathy I believe but otherwise reasonable strength and no pain. Laboratory Results 05/30/19 04:20 PT 13.8 H INR 1.20 Microbiology 05/28/19 09:09 Gram Stain - Final Hip - Left Aerobic Culture - Preliminary Cultures over negative reading today still pending, today's reading 1 colony on the plates and is to undergo an Airtest, may be contaminant. Assessment: Left shoulder rotator cuff arthropathy and left hip osteoarthritis exacerbation Plan: Patient will continue with physical therapy and occupational therapy. Patient doing well at the current time and making progress moving forward. I think we will need to follow him along clinically. The culture was one colony growing and this may be a skin contaminant most likely. I think at this point we would follow closely clinically maybe get infectious disease opinion.
--- NOTE | 2019-05-30 11:36 | PDOC(PROG) ---
Interval History: Mr. Crespo says overall his left hip. Feels a little better but still hurts in his left shoulders does not hurt even though he was offered to be discharged home today [facility] [place] fill comfortable staying another day in going home tomorrow. Denies any chest pain nausea or vomiting Objective : Data - Labs CBC and BMP: 05/26/19 13:10 05/26/19 13:10 Objective : Exam - General General Appearance: No Acute Distress, Cooperative - Respiratory Respiratory Exam: Clear to Auscultation - Bilaterally, Breathing Non Labored, Normal To Percussion, Normal to Percussion and Palpation - Cardiovascular Cardiovascular Exam: RRR, No Murmur, No Clicks, No Gallops, No Rubs, PMI Non- Displaced - GI/Abdominal GI/Abdominal Exam: Normal Bowel Sounds, Non Tender, Non Distended, Soft, No Masses, No Hepatomegaly, No Splenomegaly, No Organomegaly Assessment and Plan - Patient Problems (1) Left hip pain Current Visit: Yes Status: Acute Comment: Patient had an injection with steroids and some fluid drained cultures are pending I will repeat a CBC with differential and CRP. No fever no signs of infection at this point I discussed the case with Dr. Chairez who would be agreeable for discharge and follow up with him in the next week Code(s): M25.552 - Pain in left hip (2) Essential hypertension Current Visit: No Status: Chronic Onset Date: 03/28/12 Comment: Stable Code(s): I10 - Essential (primary) hypertension (3) Paroxysmal atrial fibrillation Current Visit: No Status: Chronic Comment: Resume Coumadin (4) Hyperlipidemia Current Visit: No Status: Chronic Onset Date: 03/28/12 Comment: Stable Code(s): E78.5 - Hyperlipidemia, unspecified
[2019-05-30 11:53] LABS: BASOPHILS # (AUTO) 0.02 10*3/UL; BASOPHILS % (AUTO) 0.1 % (0-1); EOSINOPHILS # (AUTO) 0 10*3/UL; EOSINOPHILS % (AUTO) 0 % (0-8); Hematocrit [HCT] 47.7 % (42.0-52.0); Hemoglobin [HGB] 15.7 g/dL (14.0-18.0); LYMPHOCYTES # (AUTO) 0.46 10*3/uL; MEAN CORPUSCULAR HGB CONC 32.9 g/dL (33-37); MEAN CORPUSCULAR VOLUME 99.6 FL (80-90); MEAN PLATELET VOLUME 10.2 FL (7.4-12.2); MONOCYTES % (AUTO) 5.2 % (5-15); NEUTROPHILS # (AUTO) 15.69 10*3/UL; NEUTROPHILS % (AUTO) 91.5 % (50-80); RED BLOOD COUNT 4.79 10^6/uL (4.70-6.10)
[2019-05-30 12:03] LABS: PLATELET MORPHOLOGY COMMENT NORMAL MORPHOLOGY (NORM); RBC MORPHOLOGY COMMENT NORMAL MORPHOLOGY (NORM); WBC MORPHOLOGY COMMENT NORMAL MORPHOLOGY (NORM)
--- NOTE | 2019-05-30 12:04 | PT.PROG ---
Progress Note Progress Note: S. The pt reportred feeling better today and was ready to get going on his therapy. O. The pt was assisted to the toilet where he was able to take care of pericare I. He ambulated down stairs with a FWW CGA. He received heat x 20 min, Ther ex including Nustep, UBE, all upper arm strengthening using red t band. Stair training x2 up and down with right hand rail and walker on left. All Mat activities except SLS. Min drills, sit to stands. A. the pt did very well and was safe on the stairs. He was able to safely ambulate to and from his room. He is able to care for functional activities. His pain was worse after therapy. He is cleared from therapy do be discharged when the hospitalist deems appropriate. P. COnt POC Yareli Fieldcamp CROZE MACHINE OPERATOR
[2019-05-30] MEDS: Rosuvastatin Tab 20 MG TAB PO SCH (20:37)
[2019-05-30] MEDS: Warfarin Tab 2.5 MG TAB PO SCH (20:37)
[2019-05-31 04:48] LABS: BASOPHILS # (AUTO) 0.01 10*3/UL; BASOPHILS % (AUTO) 0.1 % (0-1); EOSINOPHILS # (AUTO) 0 10*3/UL; EOSINOPHILS % (AUTO) 0 % (0-8); Hematocrit [HCT] 49.6 % (42.0-52.0); Hemoglobin [HGB] 15.8 g/dL (14.0-18.0); LYMPHOCYTES # (AUTO) 0.51 10*3/uL; MEAN CORPUSCULAR HGB CONC 31.9 g/dL (33-37); MEAN PLATELET VOLUME 9.6 FL (7.4-12.2); MONOCYTES % (AUTO) 9.8 % (5-15); NEUTROPHILS # (AUTO) 11.31 10*3/UL; NEUTROPHILS % (AUTO) 85.4 % (50-80); RED BLOOD COUNT 4.96 10^6/uL (4.70-6.10)
[2019-05-31 04:50] LABS: PLATELET MORPHOLOGY COMMENT NORMAL MORPHOLOGY (NORM); RBC MORPHOLOGY COMMENT NORMAL MORPHOLOGY (NORM); WBC MORPHOLOGY COMMENT NORMAL MORPHOLOGY (NORM)
[2019-05-31 05:48] LABS: Erythrocyte Sediment Rate 23 MM/HR (0-15)
[2019-05-31] MEDS: PANTOPRAZOLE 40 MG TABLET PO SCH (07:13)
[2019-05-31] MEDS: HYDROcodone-APAP 5 MG -325 MG TABLET PO PRN (07:18)
[2019-05-31 08:23] VITALS: BP 132/63; RESP 20; TEMP 97.2
[2019-05-31] MEDS: ASPIRIN EC 81 MG TABLET PO SCH (08:54)
[2019-05-31] MEDS: LISINOPRIL 10 MG TABLET PO SCH (08:54)
[2019-05-31] MEDS: METOPROLOL SUCCINATE 100 MG SR 24H TABLET PO SCH (08:54)
[2019-05-31] MEDS: DIGOXIN 125 MCG TABLET PO SCH (08:54)
--- NOTE | 2019-05-31 10:47 | ORTHO.PROG ---
Last Taken Vital Signs: Vital Signs - Last Taken Temperature 97.2 F 05/31/19 08:22 Pulse Rate 72 05/31/19 08:22 Respiratory Rate 20 05/31/19 08:22 Blood Pressure 132/63 05/31/19 08:22 Pulse Ox 95 05/31/19 08:22 Subjective: Patient doing better today no left shoulder pain right hip is getting better Objective: Patient's range of motion is good he walked down the therapy him back to therapy is done stairs and is doing very well leg is no erythema warmth or swelling. Motion is with some discomfort but otherwise reasonable. Laboratory Results 05/30/19 05/30/19 05/31/19 11:32 11:32 04:30 WBC 17.16 H RBC 4.79 Hgb 15.7 Hct 47.7 MCV 99.6 H MCH 32.8 H MCHC 32.9 L RDW Std Deviation 44.0 RDW Coeff of Tiffany 12.4 Plt Count 274 MPV 10.2 Immature Gran % (Auto) 0.5 Neut % (Auto) 91.5 H Lymph % (Auto) 2.7 L [place] % (Auto) 5.2 Eos % (Auto) 0 Baso % (Auto) 0.1 Immature Gran # (Auto) 0.09 Neut # (Auto) 15.69 Lymph # (Auto) 0.46 [place] # (Auto) 0.90 H Eos # (Auto) 0 Baso # (Auto) 0.02 WBC Morphology Comment Normal morphology Plt Morphology Comment Normal morphology RBC Morph Comment Normal morphology ESR PT 16.0 H INR 1.39 C-Reactive Protein 2.3 H 05/31/19 05/31/19 04:30 04:30 WBC 13.25 H RBC 4.96 Hgb 15.8 Hct 49.6 MCV 100.0 H MCH 31.9 H MCHC 31.9 L RDW Std Deviation 45.0 RDW Coeff of [place] 12.6 Plt Count 303 MPV 9.6 Immature Gran % (Auto) 0.9 Neut % (Auto) 85.4 H Lymph % (Auto) 3.8 L [place] % (Auto) 9.8 Eos % (Auto) 0 Baso % (Auto) 0.1 Immature Gran # (Auto) 0.12 Neut # (Auto) 11.31 Lymph # (Auto) 0.51 [place] # (Auto) 1.30 H Eos # (Auto) 0 Baso # (Auto) 0.01 WBC Morphology Comment Normal morphology Plt Morphology Comment Normal morphology RBC Morph Comment Normal morphology ESR 23 H PT INR C-Reactive Protein 1.2 H Vital Signs (24 hrs) 05/30/19 11:00 05/30/19 12:25 05/30/19 12:29 Temperature 97.6 F Pulse Rate [Pulse Oximeter] 75 Pulse Rate [pulse ox] 95 75 Respiratory Rate 14 Blood Pressure [Right Arm] 138/58 Pulse Ox 94 Pulse Ox [pulse ox] 94 94 05/30/19 15:00 05/30/19 16:19 05/30/19 17:00 Temperature 97.7 F Pulse Rate [Pulse Oximeter] 84 Pulse Rate [pulse ox] 75 Respiratory Rate 16 Blood Pressure [Right Arm] 104/54 Pulse Ox 93 Pulse Ox [pulse ox] 94 96 05/30/19 18:47 05/30/19 20:57 05/30/19 21:00 Temperature 97 F Pulse Rate [Pulse Oximeter] 91 Pulse Rate [pulse ox] Respiratory Rate 20 20 Blood Pressure [Right Arm] 106/72 Pulse Ox 95 Pulse Ox [pulse ox] 96 97 05/30/19 23:00 05/31/19 00:45 05/31/19 01:00 Temperature 97.4 F Pulse Rate [Pulse Oximeter] 81 Pulse Rate [pulse ox] Respiratory Rate 20 Blood Pressure [Right Arm] 130/59 Pulse Ox 94 Pulse Ox [pulse ox] 97 94 05/31/19 03:00 05/31/19 04:57 05/31/19 05:00 Temperature 97 F Pulse Rate [Pulse Oximeter] 75 Pulse Rate [pulse ox] Respiratory Rate 18 Blood Pressure [Right Arm] 148/67 Pulse Ox 93 Pulse Ox [pulse ox] 94 96 05/31/19 07:00 05/31/19 08:22 05/31/19 09:00 Temperature 97.2 F Pulse Rate [Pulse Oximeter] 68 72 Pulse Rate [pulse ox] 72 77 Respiratory Rate 18 20 Blood Pressure [Right Arm] 132/63 Pulse Ox 95 Pulse Ox [pulse ox] 93 92 Microbiology today there was one colony of growth on the anaerobic broth which was then subsequently put on aerobic plate which is growing most likely staph from testing. Assessment: A left hip aspiration secondary to fusion her left hip and left shoulder pain and discomfort. Culture growing one colony on anaerobic broth and then staph on aerobic once it was re-plated. [place] to be contaminant Plan: Patient clinically is doing very well he is improving with his range of motion function and decreasing pain not completely relieved and the hip still some hip pain present but is decreasing on a daily basis. Patient also with cultures which are growing organism felt to be a contaminant however all other testing including sedimentation rate C-reactive protein and white cell all decreasing consistent with a noninfective issue at the current time. Cell count was also 10,000. Patient wants to go home high think this is reasonable and we will have him follow up with me in the clinic towards the end of the week. I did discuss with the and the patient that if he has any increasing pain fevers chills night sweats or any constitutional symptoms or call me immediately because it probably needs to be evaluated for an infectious process which I do not think is an issue with the cultures are we obtained of the left hip.
--- NOTE | 2019-05-31 10:59 | DCSUMMARY ---
Hospitalization Summary Hospital Course: Final Discharge Diagnosis: Current Visit Problems Problem Status Onset Code Left hip pain Acute M25.552 Cervical spine arthritis Acute M47.812 Shoulder arthritis Acute M19.019 Hip arthritis Acute M16.10 Pain aggravated by physical activity Acute R52 Diagnostic Data, Laboratory Data, and Procedures of Signifigance: History and Physical pertinent to Admission: Past Medical History Medical History: 1. History of paroxysmal A. fib. 2. History of h yperlipidemia. 3. History of hypertension. 4. History of osteoarthritis. 5. History of coronary artery disease with previous stent Surgical History: 1. History of appendectomy. 2. History of cholecystectomy. 3. History of shoulder surgery Family History: Reviewed an Not Pertinent Past Social History: Does not smoke, does not drink no drugs. Course of Hospitalization: This very nice 84-year-old gentleman with history of hypertension and A. fib on anticoagulation with warfarin. Was brought in the ER because of pain in the left shoulder and left groin area in the ER and MRI of his neck shoulder x-ray hip x-rays and that Dr. Chairez was consulted. Please refer to Dr. Chairez progress note. Patient's the left hip was aspirated. Left shoulder pain is improved left hip pain is improved wound culture growing most likely contaminant CRP level sedimentation rate levels are decreasing as well as the white count no left shift probably from the steroid injection Dr. Chairez saw the patient is morning and the felt okay discharging him home he will follow-up with him next week. Please see his progress note of today as well patient has no complaints at this time no chest pain nausea vomiting or fever. He will resume his home meds including warfarin which he already has restarted and follow-up with primary care physician at the [facility] Coumadin clinic. On the date of discharge, the patient was examined: Gen.: No acute distress, alert, nontoxic Heart: Regular rate and rhythm, no murmurs, clicks, gallops, or rubs Lungs: Clear to auscultation bilaterally, breathing is nonlabored Abdomen/GI: Normal tones on auscultation, soft, nontender, nondistended Musculoskeletal/extremities: No clubbing, cyanosis, or edema Vitals reviewed and are listed below Current Visit Problems Vital Signs (24 hrs) 05/30/19 11:00 05/30/19 12:25 05/30/19 12:29 Temperature 97.6 F Pulse Rate [Pulse Oximeter] 75 Pulse Rate [pulse ox] 95 75 Respiratory Rate 14 Blood Pressure [Right Arm] 138/58 Pulse Ox 94 Pulse Ox [pulse ox] 94 94 05/30/19 15:00 05/30/19 16:19 05/30/19 17:00 Temperature 97.7 F Pulse Rate [Pulse Oximeter] 84 Pulse Rate [pulse ox] 75 Respiratory Rate 16 Blood Pressure [Right Arm] 104/54 Pulse Ox 93 Pulse Ox [pulse ox] 94 96 05/30/19 18:47 05/30/19 20:57 05/30/19 21:00 Temperature 97 F Pulse Rate [Pulse Oximeter] 91 Pulse Rate [pulse ox] Respiratory Rate 20 20 Blood Pressure [Right Arm] 106/72 Pulse Ox 95 Pulse Ox [pulse ox] 96 97 05/30/19 23:00 05/31/19 00:45 05/31/19 01:00 Temperature 97.4 F Pulse Rate [Pulse Oximeter] 81 Pulse Rate [pulse ox] Respiratory Rate 20 Blood Pressure [Right Arm] 130/59 Pulse Ox 94 Pulse Ox [pulse ox] 97 94 05/31/19 03:00 05/31/19 04:57 05/31/19 05:00 Temperature 97 F Pulse Rate [Pulse Oximeter] 75 Pulse Rate [pulse ox] Respiratory Rate 18 Blood Pressure [Right Arm] 148/67 Pulse Ox 93 Pulse Ox [pulse ox] 94 96 05/31/19 07:00 05/31/19 08:22 05/31/19 09:00 Temperature 97.2 F Pulse Rate [Pulse Oximeter] 68 72 Pulse Rate [pulse ox] 72 77 Respiratory Rate 18 20 Blood Pressure [Right Arm] 132/63 Pulse Ox 95 Pulse Ox [pulse ox] 93 92 Problem Status Onset Code Left hip pain Acute M25.552 Cervical spine arthritis Acute M47.812 Shoulder arthritis Acute M19.019 Hip arthritis Acute M16.10 Pain aggravated by physical activity Acute R52 Assessment and Plan: 1. As per discharge assessments above 2. Disposition: Home 3. Condition on discharge, stable and improved. 4. Diet: regular diet 5. Activities: resume normal activities 6. Follow-Up: 1. PCP 2. 7. Medications at the Time of Discharge: 8. Time, care, counseling and coordination of care for this discharge is greater than 30 minutes. Exam - Vitals Vital Signs: Vital Signs Temperature 97.2 F Temperature Source Temporal Artery Scan Pulse Rate [Left Radial] 88 Pulse Rate [Pulse Oximeter] 72 Pulse Rate [pulse ox] 77 Pulse Rate 82 Respiratory Rate 20 Blood Pressure [Right Arm] 132/63 Blood Pressure [Left Arm] 111/57 Blood Pressure 166/89 Pulse Ox [pulse ox] 92 Pulse Ox 95 Oxygen Flow Rate 3 Oxygen Delivery Method [pulse Room Air ox] Oxygen Delivery Method Room Air Height 5 ft 7 in Weight 195 lb Patient Problems - Patient Problem List (1) Left hip pain Current Visit: Yes Status: Acute Code(s): M25.552 - Pain in left hip Category: Medical (2) Essential hypertension Current Visit: No Status: Chronic Onset Date: 03/28/12 Code(s): I10 - Essential (primary) hypertension Category: Medical (3) Paroxysmal atrial fibrillation Current Visit: No Status: Chronic Comment: 05/06; 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 Dooley. Category: Medical (4) Hyperlipidemia Current Visit: No Status: Chronic Onset Date: 03/28/12 Code(s): E78.5 - Hyperlipidemia, unspecified Category: Medical
[2019-05-31 11:22] VITALS: O2SAT 93
--- NOTE | 2019-05-31 11:27 | PT.PROG ---
Progress Note Progress Note: S. The pt was waiting for therapy to arrive but then decided to stay and eat breakfast. O. The pt ambulated down to therapy using Walker and CGA for safety. He performed all mat activities excluding SLR, Nustep, UBE all upper extremity in all planes and motions using yellow t band for resistance. He ascended and de scended 2 stairs using right hand rail and walker. He ambulated back to his room with CGA and walker. He was made comfortable and nursing was notified. A. pt has performed and executed correctly and safely activities necessary to demonstrate safe home discharge. He is cleared from therapy at this time. P. pt to be discharged home as hospitalist deems appropriate. Yareli Fieldcamp VISUAL ARTS TEACHER
--- NOTE | 2019-06-02 10:43 | OTI REPORT ---
Thank you for the referral of Pepe Prabhakar. He was seen on 05/28/19 for an occupational therapy inpatient evaluation status post left shoulder and hip pain. SUBJECTIVE: The patient is an 84-year-old male who is being seen today secondary to left hip pain, neck pain, and left shoulder pain. He reports that a couple of days ago he was lifting 100 pound bags of feed. He does work and [place] and he says that he would like to keep it that way. He states he doesn't like to be stoved up and not moving around. He does live with his . Prior to admission the patient was independent with all ADLs including driving, dressing, bathing, and all ranching tasks. The patient's reports that he was supposed to have rotator cuff surgery approximately two years ago but had chosen not to do anything with it and now he is having pretty extreme pain in his shoulder. The patient also got Cortisone shots in his shoulder approximately 30 minutes ago prior to OT assessment. The patient reports he feels like these are kind of helping. PAST MEDICAL HISTORY: Past medical history can be found in the patient's medical record. OBJECTIVE FINDINGS: Range of motion: Upper extremity active range of motion of right shoulder flexion was 130 degrees, left shoulder flexion was 90 degrees, and he had 40 degrees of left abduction. He had 20 degrees of right rotation in the neck and 40 degrees to the left. Some manual treatment was completed to try to release some of the knots on the upper trap and neck area along with some light stretching of the shoulder and elbow. Transfers: The patient requires max assist and max amount of time for functional transfers. It is really hurting the patient's hip to complete stand pivot transfers and he needed the wheelchair moved toward him. Strength: Upper extremity strength was 2/5 on the left upper extremity for flexion/abduction, elbow flexion/extension was 4/5, and wrist flexion/extension was 4/5. ASSESSMENT: The patient's main concern is his left hip. He tends to keep it in an externally rotated position. Problem List: Decreased ability to complete transfers Decreased left upper extremity range of motion Decreased neck range of motion Increased pain Short-Term Goals: To be met by discharge from inpatient: Patient will be able to complete functional transfers with min assist. Patient will be able to complete bed mobility independently. Patient will be able to dress self with or without use of adaptive devices with modified independence. Patient will increase upper extremity strength to 4/5. Patient will have a pain level less than or equal to 3/10. Long-Term Goals: To be met following discharge from inpatient: Patient will be able to return home demonstrating safety and independence with all ADLs and functional tasks. TREATMENT PLAN: Patient will be seen B.I.D during the week and one time per day over the weekend as an inpatient to address the above goals and objectives. INITIAL TREATMENT: Treatment today consisted of the initial evaluation followed by the patient transferring from supine to sit with max assist. While sitting edge of bed we worked on active range of motion exercises with upper extremity, manual techniques to reduce tightness in the left upper extremity and neck area, and some mild stretching to the shoulder. The patient does not tolerate much secondary to the pain. The patient completed a transfer to the wheelchair with max assist x2. The patient had a lot of difficulty moving left lower extremity. MTDD
--- NOTE | 2019-06-02 11:21 | PT PM DAY ---
Diagnosis : Left Shoulder/Hip Pain PM - Physical Therapy S: The patient reports he feels like his hip is moving better. He states he is much more comfortable in the chair than he is in the bed. O: Today's therapy consisted of the patient being brought downstairs to therapy via wheelchair. He received an application of moist heat pack x20 minutes including set up to the left shoulder and left hip x20 minutes. He performed therapeutic exercises including seated marching, long arc quads, isometric hip adduction, seated heel raises, and sit to stands x3. The patient was wheeled back up to his room where he ambulated approximately three feet with walker, gait belt, and contact guard assistance with weight-bearing as tolerated on the left lower extremity to his chair. A: The patient was able to stand while ambulating over 15 minutes. The patient is doing better with lower extremity initiation and his pain tolerance. P: Continue seeing patient BID during the week and one time per day over the weekend for transfers, ambulation, and range of motion/strengthening exercises. MTDD
--- NOTE | 2019-06-02 11:30 | OT PM DAY ---
Diagnosis : Left Shoulder/Hip Pain PM - Occupational Therapy S: The patient reports that his leg is feeling a little bit better this afternoon. O: The patient was able to go from chair to wheelchair by being able to move his left lower extremity just enough to get it off the ground to do a stand pivot transfer with mod assist. Downstairs in therapy the patient received an application of moist heat pack x20 minutes including set up to the neck and left shoulder. He then received passive range of motion to the left upper extremity. A: The patient is still in a lot of pain and is having functional difficulties with upper extremities. P: Continue seeing patient BID during the week and one time per day over the weekend for upper extremity strengthening, ADLs, and overall functional mobility. MTDD
== END 2019-05-31 12:09 | disposition home or self-care (01) ==
LOC: MED/SURG 11:15 → ER 11:15 → MED/SURG 16:00
PROVIDERS: ADMIT Internal Medicine; ATTEND Internal Medicine